=== PATIENT | female | born 1985 | race Hispanic/Latino ===

== ENCOUNTER 2025-04-17 10:10 | Inpatient (IN) | payer MEDICAID, OTHER ==
[2025-04-16 12:50] LABS: Hematocrit 36.6 % (34.9-44.5); Hemoglobin 12.4 g/dL (12.0-15.5); Platelet Count 521 10x3/uL (150-450)
[2025-04-16 13:41] LABS: HIV (1/2) Antibody/Antigen Non-Reactive (NonReactive); HIV 1/2 INDEX 0.13 S/CO (<1.00); Hep B Surf Ag Non-Reactive S/CO (NonReactive); Syphilis Antibody Index 0.11 S/CO (<1.00 Non-Reactive)
[2025-04-17 11:05] VITALS: BMI 42.0
[2025-04-17] MEDS ORDERED: Tranexamic Acid 1,000 MG/10 ML VIAL IVP PRN (11:23)
[2025-04-17] MEDS ORDERED: Ondansetron PF 4 MG/2 ML Vial IVP PRN ×3 (11:23→19:12)
[2025-04-17] MEDS ORDERED: Famotidine/PF 20 mg/2ml Vial SLOW IVP PRN (11:23)
[2025-04-17] MEDS ORDERED: Methylergonovine 0.2 MG/ML VIAL IM PRN (11:23)
[2025-04-17] MEDS ORDERED: Oxytocin 30 units/NS 500 ML 500 ML IV SCH (11:23)
[2025-04-17] MEDS ORDERED: hydrALAZINE 20 MG/ML VIAL SLOW IVP PRN ×3 (11:23→19:12)
[2025-04-17] MEDS ORDERED: Diphenoxylate HCl/Atropine Tablet PO PRN (11:23)
[2025-04-17] MEDS ORDERED: Carboprost 250 MCG/ML AMP IM PRN (11:23)
[2025-04-17] MEDS ORDERED: Bicitra 30 ML UDCUP PO PRN (11:23)
[2025-04-17] MEDS: Azithromycin 500 MG in Sodium Chloride 0.9% 250 ML 250 ML IVPB SCH (11:39)
[2025-04-17] MEDS ORDERED: diphenhydrAMINE 25 MG CAP PO PRN ×2 (14:47→19:12)
[2025-04-17] MEDS ORDERED: Simethicone Chewable 80 MG TAB PO PRN (14:47)
[2025-04-17] MEDS ORDERED: Lanolin Ointment 7 GM TUBE TOP PRN ×2 (14:47→19:12)
[2025-04-17] MEDS ORDERED: Bisacodyl 10 MG SUPP PR PRN ×2 (14:47→19:12)
[2025-04-17] MEDS: Ketorolac Tromethamine 30 MG (1 mL) VIAL IVP SCH ×2 (15:53→21:55)
[2025-04-17] MEDS: Oxytocin 10 UNITS/ML VIAL ONE ×2 (18:44→18:45)
[2025-04-17] MEDS: Azithromycin 500 MG VIAL ONE (18:45)
[2025-04-17] MEDS: Ondansetron PF 4 MG/2 ML Vial ONE (18:45)
[2025-04-17] MEDS ORDERED: Milk Of Magnesia 30 ML UDCUP PO PRN (19:12)
[2025-04-17] MEDS ORDERED: Benzocaine-Menthol 82.5 ML CAN TOP PRN (19:12)
[2025-04-17] MEDS ORDERED: Boostrix 0.5 ML (Tdap) VIAL (>/=7 yrs of age) IM ONE (21:00)
[2025-04-17] MEDS ORDERED: Ferrous Sulfate 325 MG TAB PO SCH ×2 (21:00)
[2025-04-17] MEDS ORDERED: Ketorolac Tromethamine 30 MG (1 mL) VIAL IVP SCH (22:00)
[2025-04-18] MEDS ORDERED: HYDROcodone/Acetaminophen 5/325 mg Tablet PO PRN ×2 (00:45)
[2025-04-18] MEDS: HYDROcodone/Acetaminophen 5/325 mg Tablet PO PRN (08:55)
[2025-04-18] MEDS: Ferrous Sulfate 325 MG TAB PO SCH (08:55)
[2025-04-18 09:07] LABS: Hematocrit 29.5 % (34.9-44.5); Hemoglobin 9.8 g/dL (12.0-15.5); Mean Corpuscular Hemoglobin 29.9 pg (27.0-33.0); Mean Corpuscular Volume 89.9 fL (81.6-98.3); Platelet Count 407 10x3/uL (150-450); Red Blood Cell (RBC) Count 3.28 10x6/uL (3.90-5.03); White Blood Cell (WBC) Count 10.82 10x3/uL (3.5-10.5)
[2025-04-18] MEDS: HYDROcodone/Acetaminophen 10/325 mg Tablet PO PRN (13:43)
[2025-04-18] MEDS: Ibuprofen 800 MG TAB PO SCH (15:55)
[2025-04-18] MEDS ORDERED: Ibuprofen 800 MG TAB PO SCH (16:00)
[2025-04-19 07:30] VITALS: BP 94/55; TEMP 98.1
== END 2025-04-19 14:00 | disposition home or self-care (01) | DRG 787 ==
LOC: CSHLD 10:10 → CSHPP 16:26
PROVIDERS: ADMIT Family Medicine; ATTEND Family Medicine
PROC: 10D00Z1 Extraction of Products of Conception, Low, Open Approach (ICD-10-PCS; principal; 2025-04-17)
DX: O24.424 Gestational diabetes mellitus in childbirth, insulin controlled (principal); O26.643 Intrahepatic cholestasis of pregnancy, third trimester; Z3A.37 37 weeks gestation of pregnancy; Z37.0 Single live birth
CPT/HCPCS: 36415; 36416; 51702; 85014; 85018; 85027; 85049; 86780; 86850; 86870; 86900; 86901; 86922; 87340; 87389; J0456; J1885; J2274; J2590; J7050

== ENCOUNTER 2025-05-24 22:57 | Emergency (ER) | payer MEDICAID ==
[2025-05-24] MEDS ORDERED: Acetaminophen 500 MG TAB ONE (23:13)
== END 2025-05-25 00:36 | disposition home or self-care (01) ==
LOC: CSHERS 22:57
DX: J02.0 Streptococcal pharyngitis (principal); R59.1 Generalized enlarged lymph nodes; H74.8X3 Other specified disorders of middle ear and mastoid, bilateral; E11.9 Type 2 diabetes mellitus without complications; I10 Essential (primary) hypertension
CPT/HCPCS: 87428; 87430; 99283